=== PATIENT | male | born 1955 | race Two or more races ===

== ENCOUNTER 2020-12-22 07:13 | Day surgery (SDC) | payer OTHER ==
[~2020-12-22] VITALS: Ht 188 cm; Wt 81.6 kg
[~2020-12-22 07:13] MED LIST: ALPR0.254 PO; AML5T PO; ASPI1TAB19 PO; ATOR40TA52 PO; B-COCAP4 PO; BECL80AE11 IN; CLOP75TA70 PO; DAPA1TAB4 PO; INSLANTI SC; ISOS10TA2 PO; LINA5TAB PO; METH250T21 PO; METO25TA5 PO; MICO2CRE84 TOP; PREG150C PO; TELM1TAB35 PO
[2020-12-22] MEDS ORDERED: LIDOCAINE 2%HCL (LOCAL ANESTH.) INJ 20ML MDV ONE (07:51)
[2020-12-22] MEDS ORDERED: IODIXANOL 320MG/ML 100ML BTL IV ONE (07:51)
[2020-12-22] MEDS ORDERED: fentaNYL CITRATE 100 MCG/2 ML VL ONE (08:04)
[2020-12-22] MEDS ORDERED: MIDAZOLAM HCL 2MG/2ML 2ml VIAL (1mg/ml) ONE (08:04)
[2020-12-22] MEDS ORDERED: HEPARIN SODIUM (PORCINE) 5000 UNITS/ML 1ML VIAL ONE (08:04)
[2020-12-22] MEDS ORDERED: ANGIOMAX 250 MG VIAL IV ONE (08:04)
[2020-12-22] MEDS ORDERED: VERAPAMIL 2.5MG/ML INJ 2ML VIAL IV ONE (08:04)
[2020-12-22] MEDS ORDERED: SODIUM CHL 0.9% 0 ML ONE (08:06)
[2020-12-22] MEDS ORDERED: ACETAMINOPHEN 500 MG TAB PO PRN (09:15)
[2020-12-22] MEDS ORDERED: HYDROcodone-ACET 5/325MG TAB PO PRN (09:15)
[2020-12-22] MEDS ORDERED: ONDANSETRON HCL 4 MG/2 ML VIAL IV PRN (09:15)
== END 2020-12-22 13:25 | disposition home or self-care (01) ==
LOC: CATH 07:13
PROVIDERS: ATTEND Internal Medicine
DX: I25.10 Atherosclerotic heart disease of native coronary artery without angina pectoris (principal); I10 Essential (primary) hypertension; E78.5 Hyperlipidemia, unspecified; I25.2 Old myocardial infarction; J98.4 Other disorders of lung; E10.9 Type 1 diabetes mellitus without complications; Z79.82 Long term (current) use of aspirin; Z20.822 Contact with and (suspected) exposure to COVID-19; Z87.891 Personal history of nicotine dependence; Z79.899 Other long term (current) drug therapy
CPT/HCPCS: 93458; C1894; J1644; J2250; J3010; J7030; Q9967; U0003; 99152; 99153